=== PATIENT | female | born 1955 | race Caucasian/White ===

== ENCOUNTER 2017-06-23 13:01 | Emergency (ER) | payer OTHER, MEDICAID ==
[~2017-06-23 13:01] MED LIST: ARIP5S PO; BISA10SU8 PR; LACT20SO4 PO; LAMO100 PO; PAXI25TA3 PO; TRAZ50TA78 PO; WELL150T PO
[2017-06-23 13:10] VITALS: BP 130/89; PULSE 118; RESP 24; TEMP 98; O2SAT 99
[2017-06-23] MEDS ORDERED: LORazepam 2 MG/ML VIAL ONE (13:12)
[2017-06-23] MEDS ORDERED: HALOPERIDOL LACTATE 5 MG/ML AMP ONE (13:12)
[2017-06-23] MEDS ORDERED: HALOPERIDOL LACTATE 5 MG/ML AMP IM ONE (13:15)
[2017-06-23] MEDS ORDERED: LORazepam 2 MG/ML VIAL IM ONE (13:15)
[2017-06-23 13:18] VITALS: TEMP 98.7
[2017-06-23] MEDS ORDERED: SODIUM CHLOR 0.9% 1000 ML INJ 1,000 ML IV SCH (13:19)
[2017-06-23] MEDS ORDERED: SODIUM CHLORIDE 0.9% FLUSH 5 ML FLUSH IV FLUSH PRN (13:30)
--- NOTE | 2017-06-23 13:31 | PD ---
HPI Chief Complaint: Altered Mental Status Time Seen by Provider: 13:18 Travel History International Travel<30 days: No Contact w/Intl Traveler<30days: No Traveled to known affect area: No History of Present Illness HPI 62 year old female presents to the emergency department for evaluation of AMS. According to EMS, the patient drove to [facility] and was requesting meds for her bipolar disorder. Once upon arrival at [facility], she started thrashing around. When EMS she did answer some questions and refuses to answer others. She is thrashing her arms and legs around. She does do purposeful movement as well including trying to slap me as I examine her. The patient will not answer any of my questions. History and physical is very limited due to patient's thrashing around. Severity is moderate. PFSH Past Medical History Bipolar Disorder: Yes Anxiety: Yes Depression: Yes Diminished Hearing: No Psychiatric: Yes Menopausal: Yes Past Surgical History Section: Yes Other Surgery: Yes (CYST REMOVED) Social History Alcohol Use: No Tobacco Use: No Substance Use: No Allergies-Medications (Allergen,Severity, Reaction): Coded Allergies: No Known Allergies (Verified Adverse Reaction, Unknown, 06/23/17) Reported Meds & Prescriptions Reported Meds & Active Scripts Active Active Prescriptions or Reported Medications Unobtainable Review of Systems Except as stated in HPI: all other systems reviewed are Neg Physical Exam Exam Limitations: Altered Mental Status, Uncooperative Narrative GENERAL: Well-nourished, well-developed female patient, afebrile. Patient is thrashing her arms and legs around. She does have purposeful movement, but does not obey commands or speak to me. SKIN: Focused skin assessment warm/dry. HEAD: Normocephalic. Atraumatic. EYES: No scleral icterus. No injection or drainage. NECK: Supple, trachea midline. No JVD or lymphadenopathy. CARDIOVASCULAR: Regular rate and rhythm without murmurs, gallops, or rubs. RESPIRATORY: Breath sounds equal bilaterally. No accessory muscle use. Lungs are clear to auscultation. GASTROINTESTINAL: Abdomen soft, non-tender, nondistended. MUSCULOSKELETAL: No cyanosis, or edema. BACK: Nontender without obvious deformity. No CVA tenderness. Data Data Last Documented VS Vital Signs Date Time Temp Pulse Resp B/P (MAP) Pulse Ox O2 Delivery O2 Flow Rate FiO2 06/23/17 15:03 80 15 94/61 (72) 100 Room Air 06/23/17 13:18 98.7 Orders Orders Lorazepam Inj (Ativan Inj) (06/23/17 13:15) Haloperidol Inj (Haldol Inj) (06/23/17 13:15) Haloperidol Inj (Haldol Inj) (06/23/17 13:12) Lorazepam Inj (Ativan Inj) (06/23/17 13:12) Electrocardiogram (06/23/17 13:19) Ammonia (06/23/17 13:19) Complete Blood Count With Diff (06/23/17 13:19) Comprehensive Metabolic Panel (06/23/17 13:19) Creatine Kinase (Cpk) (06/23/17 13:19) Prothrombin Time / Inr (Pt) (06/23/17 13:19) Act Partial Throm Time (Ptt) (06/23/17 13:19) Troponin I (06/23/17 13:19) Urinalysis - C+S If Indicated (06/23/17 13:19) Chest, Single Ap (06/23/17 13:19) Ct Brain W/O Iv Contrast(Rout) (06/23/17 13:19) Blood Glucose (06/23/17 13:19) Ecg Monitoring (06/23/17 13:19) Iv Access Insert/Monitor (06/23/17 13:19) Oximetry (06/23/17 13:19) Sodium Chloride 0.9% Flush (Ns Flush) (06/23/17 13:30) Sodium Chlor 0.9% 1000 Ml Inj (Ns 1000 M (06/23/17 13:19) Drug Screen, Random Urine (06/23/17 13:19) Alcohol (Ethanol) (06/23/17 13:19) Tylenol (Acetaminophen) (06/23/17 13:19) Salicylates (Aspirin) (06/23/17 13:19) Cath For Specimen (06/23/17 13:19) Psych Screen (06/23/17 16:10) Restraints Non-Violent RAY.Q3H (06/23/17 13:15) Labs Laboratory Tests Test 06/23/17 13:50 06/23/17 14:07 06/23/17 15:50 Urine Color YELLOW Urine Turbidity CLEAR Urine pH 6.0 Urine Specific [place] 1.011 Urine Protein NEG mg/dL Urine Glucose (UA) NEG mg/dL Urine Ketones NEG mg/dL Urine Occult Blood NEG Urine Nitrite NEG Urine Bilirubin NEG Urine Urobilinogen LESS THAN 2.0 MG/DL Urine Leukocyte Esterase NEG Urine RBC LESS THAN 1 /hpf Urine WBC 1 /hpf Microscopic Urinalysis Comment CATH-CULT NOT IND Urine Opiates Screen NEG Urine Barbiturates Screen NEG Urine Amphetamines Screen NEG Urine Benzodiazepines Screen NEG Urine Cocaine Screen NEG Urine Cannabinoids Screen NEG White Blood Count 5.6 TH/MM3 Red Blood Count 3.84 MIL/MM3 Hemoglobin 12.2 GM/DL Hematocrit 36.2 % Mean Corpuscular Volume 94.4 FL Mean Corpuscular Hemoglobin 31.9 PG Mean Corpuscular Hemoglobin Concent 33.8 % Red Cell Distribution Width 13.7 % Platelet Count 245 TH/MM3 Mean Platelet Volume 7.6 FL Neutrophils (%) (Auto) 56.1 % Lymphocytes (%) (Auto) 35.0 % Monocytes (%) (Auto) 5.8 % Eosinophils (%) (Auto) 2.8 % Basophils (%) (Auto) 0.3 % Neutrophils # (Auto) 3.2 TH/MM3 Lymphocytes # (Auto) 2.0 TH/MM3 Monocytes # (Auto) 0.3 TH/MM3 Eosinophils # (Auto) 0.2 TH/MM3 Basophils # (Auto) 0.0 TH/MM3 CBC Comment DIFF FINAL Differential Comment Prothrombin Time 10.7 SEC Prothromb Time International Ratio 1.0 RATIO Activated Partial Thromboplast Time 25.7 SEC Blood Urea Nitrogen 10 MG/DL Creatinine 0.73 MG/DL Random Glucose 78 MG/DL Total Protein 6.6 GM/DL Albumin 3.6 GM/DL Calcium Level 8.9 MG/DL Alkaline Phosphatase 87 U/L Aspartate Amino Transf (AST/SGOT) 45 U/L Alanine Aminotransferase (ALT/SGPT) 49 U/L Total Bilirubin 0.3 MG/DL Sodium Level 140 MEQ/L Potassium Level 3.8 MEQ/L Chloride Level 106 MEQ/L Carbon Dioxide Level 27.5 MEQ/L Anion Gap 7 MEQ/L Estimat Glomerular Filtration Rate 80 ML/MIN Total Creatine Kinase 188 U/L Troponin I LESS THAN 0.02 NG/ML Salicylates Level LESS THAN 1.7 MG/DL Acetaminophen Level LESS THAN 2.0 MCG/ML Ethyl Alcohol Level LESS THAN 3 MG/DL Ammonia 30 MCMOL/L MDM Medical Decision Making Medical Screen Exam Complete: Yes Emergency Medical Condition: Yes Medical Record Reviewed: Yes Differential Diagnosis Substance abuse versus psychiatric disorder versus electrolyte abnormality versus intracranial abnormality Narrative Course 62-year-old female presents to the emergency department via EMS for altered mental status. Patient is thrashing around, does do purposeful movement, but will not talk. EKG shows sinus rhythm, heart rate 91, no acute ST changes. CBC is unremarkable. CMP shows slightly elevated AST of 45. CK is 188. Troponin is less than 0.02. Ammonia is is 30. Coags are unremarkable. Salicylate level is less than 1.7. Acetaminophen level is less than 2.0. Urine drug screen is negative. Alcohol level is less than 3. UA is negative. 1315 - patient is uncooperative, heart herself and others, unable to follow instructions. Patient is placed and nonviolent restraints. Upon reexamination, patient has no alcohol. She answers questions appropriately. She is alert and oriented to person, place, time, situation. Patient states she was aware of her thrashing around, but states she cannot control her movements. This was not seizures, but purposeful movements on my exam. She states this happened approximately 2 years ago as well and it stopped on its own. Patient states she was going to [facility] for her [facility] medications. Patient is medically cleared for psychiatric screening and disposition. Diagnosis Primary Impression: Psychiatric disorder Scripts Unable to Obtain Active Prescriptions or Reported Meds Condition: Stable Padmini Samuel LAURA Jun 23, 2017 13:31
--- NOTE | 2017-06-23 13:46 | RADRPT ---
EXAM DATE/TIME: 06/23/2017 13:38 [facility] COMPARISON: No previous studies available for comparison. INDICATIONS : Shortness of breath, altered mental status. MEDICAL HISTORY : None. SURGICAL HISTORY : None. ENCOUNTER: Initial ACUITY: 1 day PAIN SCORE: Non-responsive. LOCATION: Bilateral chest FINDINGS: A single view of the chest demonstrates the lungs to be symmetrically aerated without evidence of mas s, infiltrate or effusion. The cardiomediastinal contours are unremarkable. Osseous structures are intact. CONCLUSION: No acute disease. Sarbjit Thompson MD FACR on June 23, 2017 at 13:41 Board Certified Radiologist. This report was verified electronically.
[2017-06-23 14:03] LABS: BLOOD, URINE NEG (NEG); GLUCOSE,URINE NEG (NEG); KETONE, URINE NEG (NEG); NITRITE,URINE NEG (NEG); URINE COLOR YELLOW (YELLW/STRAW)
[2017-06-23 14:10] LABS: COMMENT (UR) CATH-CULT NOT IND; CULTURE IF INDICATED CATH CULTURE NOT IND
[2017-06-23 14:31] LABS: AUTOMATED NEUTROPHIL # 3.2 TH/MM3 (1.8-7.7); BASOPHIL % 0.3 % (0.0-2.0); EOSINOPHIL # 0.2 TH/MM3 (0-0.4); EOSINOPHIL % 2.8 % (0.0-4.0); HEMATOCRIT 36.2 % (35.0-46.0); HEMO FLAGS DIFF FINAL; MEAN CELL VOLUME 94.4 FL (80.0-100.0); MEAN CORPUSCULAR HEMOGLOBIN 31.9 PG (27.0-34.0); MEAN CORPUSCULAR HGB CONC 33.8 % (32.0-36.0); MONO % 5.8 % (0.0-8.0); NEUT % 56.1 % (16.0-70.0); PLATELET COUNT 245 TH/MM3 (150-450); RED BLOOD COUNT 3.84 MIL/MM3 (4.00-5.30); RED CELL DISTRIBUTION WIDTH 13.7 % (11.6-17.2); WHITE BLOOD COUNT 5.6 TH/MM3 (4.0-11.0)
[2017-06-23 14:42] LABS: APTT (PATIENT) 25.7 SEC (24.3-30.1); PROTHROMBIN TIME - PATIENT 10.7 SEC (9.8-11.6)
[2017-06-23 15:03] VITALS: BP 94/61; PULSE 80; RESP 15; O2SAT 100
[2017-06-23 15:16] LABS: BLOOD UREA NITROGEN 10 MG/DL (7-18); GLOMERULAR FILTRATION RATE 80 ML/MIN (>89)
[2017-06-23 15:17] LABS: ALKALINE PHOSPHATASE 87 U/L (45-117); ALT (GPT) 49 U/L (10-53); ANION GAP 7 MEQ/L (5-15); AST (GOT) 45 U/L (15-37); BICARBONATE 27.5 MEQ/L (21.0-32.0); CHLORIDE 106 MEQ/L (98-107); POTASSIUM 3.8 MEQ/L (3.5-5.1); SODIUM (NA) 140 MEQ/L (136-145); TOTAL BILIRUBIN ADULT 0.3 MG/DL (0.2-1.0)
[2017-06-23 15:18] LABS: ACETAMINOPHEN LESS THAN 2.0 MCG/ML (10.0-30.0); ALCOHOL LESS THAN 3 MG/DL (0-5); CREATINE KINASE 188 U/L (26-192)
--- NOTE | 2017-06-23 15:24 | RADRPT ---
EXAM DATE/TIME: 06/23/2017 15:11 [facility] COMPARISON: No previous studies available for comparison. INDICATIONS : Altered mental status RADIATION DOSE: 47.70 CTDIvol (mGy) MEDICAL HISTORY : None SURGICAL HISTORY : None. ENCOUNTER: Initial ACUITY: 1 day PAIN SCALE: Non-responsive LOCATION: Bilateral head TECHNIQUE: Multiple contiguous axial images were obtained of the head. Using automated exposure control and adj ustment of the mA and/or kV according to patient size, radiation dose was kept as low as reasonably a chievable to obtain optimal diagnostic quality images. DICOM format image data is available electro nically for review and comparison. FINDINGS: CEREBRUM: The ventricles are normal for age. No evidence of midline shift, mass lesion, hemorrhage or acute in farction. No extra-axial fluid collections are seen. POSTERIOR FOSSA: The cerebellum and brainstem are intact. The 4th ventricle is midline. The cerebellopontine angle i s unremarkable. EXTRACRANIAL: The visualized portion of the orbits is intact. SKULL: The calvaria is intact. No evidence of skull fracture. CONCLUSION: Negative for acute process. Sarbjit Thompson MD FACR on June 23, 2017 at 15:20 Board Certified Radiologist. This report was verified electronically.
--- NOTE | 2017-06-23 19:18 | PD ---
Physical Exam Date Seen by Provider: Jun 23, 2017 Time Seen by Provider: 15:00 Narrative I, Dr. Espinal, have reviewed the advance practice practitioner's documentation and am in agreement, met with the patient face to face, made the diagnosis, and the medical decision making was done by me. *My assessment and Findings: Patient seen and evaluated with PA, please see PA note for further details. She is here because of severe agitation, seizure- like movement, but is directable. There is no focal neurological deficits at this time and was given Ativan with improvement in symptoms. Laboratory Tests Test 06/23/17 13:50 06/23/17 14:07 06/23/17 15:50 Red Blood Count 3.84 MIL/MM3 (4.00-5.30) Aspartate Amino Transf (AST/SGOT) 45 U/L (15-37) Estimat Glomerular Filtration Rate 80 ML/MIN (>89) Troponin I LESS THAN 0.02 NG/ML Salicylates Level LESS THAN 1.7 MG/DL Acetaminophen Level LESS THAN 2.0 MCG/ML Last [address] 06/23/[id number] Signed Impressions: Service Date/Time: Friday, June 23, 2017 15:11 - CONCLUSION: Negative for acute process. Sarbjit Thompson MD FACR Chest X-Ray 06/23/171318 Signed Impressions: Service Date/Time: Friday, June 23, 2017 13:38 - CONCLUSION: No acute disease. Sarbjit Thompson MD FACR CAT scan is negative and lab work was otherwise unremarkable. We suspect underlying psychiatric pathology and at this point, psychiatric consult has been placed. Patient is medically clear for psychiatric evaluation. Data Data Last Documented VS Vital Signs Date Time Temp Pulse Resp B/P (MAP) Pulse Ox O2 Delivery O2 Flow Rate FiO2 06/23/17 15:03 80 15 94/61 (72) 100 Room Air 06/23/17 13:18 98.7 Orders Orders Lorazepam Inj (Ativan Inj) (06/23/17 13:15) Haloperidol Inj (Haldol Inj) (06/23/17 13:15) Haloperidol Inj (Haldol Inj) (06/23/17 13:12) Lorazepam Inj (Ativan Inj) (06/23/17 13:12) Electrocardiogram (06/23/17 13:19) Ammonia (06/23/17 13:19) Complete Blood Count With Diff (06/23/17 13:19) Comprehensive Metabolic Panel (06/23/17 13:19) Creatine Kinase (Cpk) (06/23/17 13:19) Prothrombin Time / Inr (Pt) (06/23/17 13:19) Act Partial Throm Time (Ptt) (06/23/17 13:19) Troponin I (06/23/17 13:19) Urinalysis - C+S If Indicated (06/23/17 13:19) Chest, Single Ap (06/23/17 13:19) Ct Brain W/O Iv Contrast(Rout) (06/23/17 13:19) Blood Glucose (06/23/17 13:19) Ecg Monitoring (06/23/17 13:19) Iv Access Insert/Monitor (06/23/17 13:19) Oximetry (06/23/17 13:19) Sodium Chloride 0.9% Flush (Ns Flush) (06/23/17 13:30) Sodium Chlor 0.9% 1000 Ml Inj (Ns 1000 M (06/23/17 13:19) Drug Screen, Random Urine (06/23/17 13:19) Alcohol (Ethanol) (06/23/17 13:19) Tylenol (Acetaminophen) (06/23/17 13:19) Salicylates (Aspirin) (06/23/17 13:19) Cath For Specimen (06/23/17 13:19) Psych Screen (06/23/17 16:10) Restraints Non-Violent RAY.Q3H (06/23/17 13:15) Labs Laboratory Tests Test 06/23/17 13:50 06/23/17 14:07 06/23/17 15:50 Urine Color YELLOW Urine Turbidity CLEAR Urine pH 6.0 Urine Specific [place] 1.011 Urine Protein NEG mg/dL Urine Glucose (UA) NEG mg/dL Urine Ketones NEG mg/dL Urine Occult Blood NEG Urine Nitrite NEG Urine Bilirubin NEG Urine Urobilinogen LESS THAN 2.0 MG/DL Urine Leukocyte Esterase NEG Urine RBC LESS THAN 1 /hpf Urine WBC 1 /hpf Microscopic Urinalysis Comment CATH-CULT NOT IND Urine Opiates Screen NEG Urine Barbiturates Screen NEG Urine Amphetamines Screen NEG Urine Benzodiazepines Screen NEG Urine Cocaine Screen NEG Urine Cannabinoids Screen NEG White Blood Count 5.6 TH/MM3 Red Blood Count 3.84 MIL/MM3 Hemoglobin 12.2 GM/DL Hematocrit 36.2 % Mean Corpuscular Volume 94.4 FL Mean Corpuscular Hemoglobin 31.9 PG Mean Corpuscular Hemoglobin Concent 33.8 % Red Cell Distribution Width 13.7 % Platelet Count 245 TH/MM3 Mean Platelet Volume 7.6 FL Neutrophils (%) (Auto) 56.1 % Lymphocytes (%) (Auto) 35.0 % Monocytes (%) (Auto) 5.8 % Eosinophils (%) (Auto) 2.8 % Basophils (%) (Auto) 0.3 % Neutrophils # (Auto) 3.2 TH/MM3 Lymphocytes # (Auto) 2.0 TH/MM3 Monocytes # (Auto) 0.3 TH/MM3 Eosinophils # (Auto) 0.2 TH/MM3 Basophils # (Auto) 0.0 TH/MM3 CBC Comment DIFF FINAL Differential Comment Prothrombin Time 10.7 SEC Prothromb Time International Ratio 1.0 RATIO Activated Partial Thromboplast Time 25.7 SEC Blood Urea Nitrogen 10 MG/DL Creatinine 0.73 MG/DL Random Glucose 78 MG/DL Total Protein 6.6 GM/DL Albumin 3.6 GM/DL Calcium Level 8.9 MG/DL Alkaline Phosphatase 87 U/L Aspartate Amino Transf (AST/SGOT) 45 U/L Alanine Aminotransferase (ALT/SGPT) 49 U/L Total Bilirubin 0.3 MG/DL Sodium Level 140 MEQ/L Potassium Level 3.8 MEQ/L Chloride Level 106 MEQ/L Carbon Dioxide Level 27.5 MEQ/L Anion Gap 7 MEQ/L Estimat Glomerular Filtration Rate 80 ML/MIN Total Creatine Kinase 188 U/L Troponin I LESS THAN 0.02 NG/ML Salicylates Level LESS THAN 1.7 MG/DL Acetaminophen Level LESS THAN 2.0 MCG/ML Ethyl Alcohol Level LESS THAN 3 MG/DL Ammonia 30 MCMOL/L [facility] Medical Record Reviewed: Yes Supervised Visit with JARON: Yes Diagnosis Primary Impression: Psychiatric disorder Scripts Unable to Obtain Active Prescriptions or Reported Meds Condition: Stable Josemanuel Espinal MD Jun 23, 2017 19:18
[2017-06-23 19:47] VITALS: BP 104/60; PULSE 81; RESP 18; TEMP 98.4; O2SAT 96
[2017-06-23 23:03] VITALS: BP 99/58; PULSE 75; RESP 16; O2SAT 97
[2017-06-24 01:37] VITALS: BP 106/59; PULSE 86; RESP 18; O2SAT 96
[2017-06-24 04:45] VITALS: BP 106/56; PULSE 68; RESP 16; O2SAT 96
[2017-06-24 06:40] VITALS: PULSE 71
--- NOTE | 2017-06-24 14:29 | EKG ---
Date Performed: 06/23/2017 Time Performed: 13:43:19 PTAGE: 62 years EKG: Sinus rhythm NORMAL ECG PREVIOUS TRACING : 07/21/2008 11.48 Compared to prior tracing no significant change DOCTOR: Jeffery Negrete Interpretating Date/Time 06/24/2017 14:22:58
== END 2017-06-24 09:02 | disposition left against medical advice (07) ==
LOC: NEPC 13:01
DX: F99 Mental disorder, not otherwise specified (principal); F41.8 Other specified anxiety disorders; R41.82 Altered mental status, unspecified
CPT/HCPCS: 70450; 71010; 80053; 80307; 81001; 82140; 82550; 84484; 85025; 85610; 85730; 93005; 96372; 99285; J1630; J2060; J7030; P9612